=== PATIENT | female | born 1940 | race Caucasian/White ===

== ENCOUNTER 2018-12-03 12:39 | Emergency (ER) | payer OTHER ==
[~2018-12-03] VITALS: Ht 152.4 cm; Wt 50.8 kg
== END 2018-12-04 08:00 | disposition designated cancer center or children's hospital (05) ==
LOC: ER 12:39
DX: G83.4 Cauda equina syndrome (principal)
CPT/HCPCS: 72148

== ENCOUNTER 2019-07-04 03:34 | Emergency (ER) | payer OTHER ==
[~2019-07-04] VITALS: Ht 152.4 cm; Wt 45.4 kg
[2019-07-04] MEDS ORDERED: CLONAZEPAM0.5 MG (03:52)
[2019-07-04] MEDS ORDERED: COZAAR100 MG (03:52)
== END 2019-07-04 12:58 ==
LOC: ER 03:34
DX: R26.0 Ataxic gait (principal); F06.4 Anxiety disorder due to known physiological condition

== ENCOUNTER 2022-07-03 12:56 | Emergency (ER) | payer OTHER ==
[~2022-07-03] VITALS: Ht 157.5 cm; Wt 42.6 kg
[~2022-07-03 12:56] MED LIST: CLONAZEPAM0.5 MG; COZAAR100 MG
== END 2022-07-03 16:23 | disposition home or self-care (01) ==
LOC: ER 12:56
DX: S09.90XA Unspecified injury of head, initial encounter (principal); W18.30XA Fall on same level, unspecified, initial encounter; Y93.9 Activity, unspecified; Y92.512 Supermarket, store or market as the place of occurrence of the external cause

== ENCOUNTER 2023-10-27 08:12 | Outpatient (CLI) | payer OTHER | END 2023-10-27 08:22 | disposition home or self-care (01) | LOC: TOM 08:12 | PROVIDERS: ATTEND Internal Medicine Gastroenterology | DX: R19.5 Other fecal abnormalities (principal) ==

== ENCOUNTER 2024-03-23 07:24 | Outpatient (CLI) | payer OTHER | END 2024-03-23 07:25 | disposition home or self-care (01) | LOC: NUCLEAR 07:24 | PROVIDERS: ATTEND Internal Medicine Hematology & Oncology | DX: I82.402 Acute embolism and thrombosis of unspecified deep veins of left lower extremity (principal); I87.2 Venous insufficiency (chronic) (peripheral) ==